=== PATIENT | male | born 1990 | race Caucasian/White ===

== ENCOUNTER 2017-03-05 07:47 | Emergency (ER) | payer OTHER ==
[2017-03-05 07:50] VITALS: BP 144/57; PULSE 132; RESP 18; O2SAT 97
--- NOTE | 2017-03-05 08:09 | ED.REPORT ---
HPI-General Illness Date of Service Mar 05, 2017 ED Provider: Brenton Taylor MD Nursing Notes Stated Complaint: KIDNEY PAIN Chief Complaint: General Complaint Allergies: Coded Allergies: ondansetron (Verified Allergy, Unknown, hives, 03/05/17) General Time Seen by MD: 08:02 Past Medical History Past Medical History None reported. Past Surgical History None reported. Smoking History Unknown if Ever Smoker Social History Patient reports drinking one beer prior to the accident Other Social History: Local resident Ambulatory Status Independent Physical Exam Vital Signs Vital Signs Date Time Temp Pulse Resp B/P Pulse Ox O2 Delivery O2 Flow Rate FiO2 03/05/17 07:50 36.8 132 18 144/57 97 Room Air Interpretation & Diagnostics Lab Results Interpretation Result Diagram: 03/05/17 0842 03/05/17 0842 Test 03/05/17 08:27 03/05/17 08:42 Urine Color Yellow (YELLOW) Urine Appearance Clear (CLEAR,HAZY) Urine pH 6.0 (5.0-8.0) Urine Specific [place] 1.012 (1.003-1.035) Urine Protein Negativemg/dL (NEG,TRACE) Urine Glucose (UA) Negativemg/dL (NEGATIVE) Urine Ketones Negativemg/dL (NEGATIVE) Urine Occult Blood Negative (NEGATIVE) Urine Nitrite Negative (NEGATIVE) Urine Bilirubin Negative (NEGATIVE) Urine Urobilinogen Normalmg/dL (NORMAL) Urine Leukocyte Esterase Trace (NEGATIVE) Urine RBC 0-2/hpf (0-2) Urine WBC 6-10/hpf (0-5) Urine Epithelial Cells Few/hpf (NONE-MOD) Urine Crystals None seen (NONE SEEN) Urine Bacteria None/hpf (NONE-FEW) Urine Hyaline Casts None/lpf (NONE) Urine Granular Casts None seen (NONE SEEN) Urine Waxy Casts None seen (NONE SEEN) Urine Red Blood Cell Casts None seen (NONE SEEN) Urine White Blood Cell Casts None seen (NONE SEEN) Urine Mucus None seen (None Seen) Urine Trichomonas None seen (NONE SEEN) Urine Yeast None (NONE SEEN) Urinalysis Comment None Urine Culture Reflexed Indicated White Blood Count 19.2th/mm3 (3.8-10.1) Red Blood Count 5.37mil/mm3 (4.40-5.80) Hemoglobin 16.7g/dL (13.8-17.2) Hematocrit 47.4% (41.0-50.0) Mean Corpuscular Volume 88.3fL (81-100) Mean Corpuscular Hemoglobin 31.1pg (27.0-35.0) Mean Corpuscular Hemoglobin Concent 35.2% (32.0-37.0) Red Cell Distribution Width 13.6% (12.3-15.4) Platelet Count 277bil/L (150-400) Neutrophils (%) (Auto) 80.9% (40-74) Lymphocytes (%) (Auto) 7.2% (14-46) Monocytes (%) (Auto) 10.4% (4-12) Eosinophils (%) (Auto) 0.6% (0-5) Basophils (%) (Auto) 0.2% (0-3) Erythrocyte Sedimentation Rate 4mm/hr (0-15) Sodium Level 136mEq/L (134-144) Potassium Level 4.2mEq/L (3.5-5.2) Chloride Level 96mEq/L (97-108) Carbon Dioxide Level 23mmol/L (18-29) Blood Urea Nitrogen 18mg/dL (6-20) Creatinine 1.44mg/dL (0.76-1.27) Estimat Glomerular Filtration Rate 62mL/min (>59) Glucose Level 117mg/dL (60-99) Calcium Level 10.0mg/dL (8.5-10.1) Total Bilirubin 0.8mg/dL (0.0-1.2) Aspartate Amino Transf (AST/SGOT) 24U/L (0-50) Alanine Aminotransferase (ALT/SGPT) 26U/L (0-44) Alkaline Phosphatase 113U/L (25-150) Total Protein 8.0g/dL (6.4-8.4) Albumin 4.3g/dL (3.4-5.0) Discharge & Departure Referrals: JOSE R MORALES MD (PCP) Brenton Taylor MD Mar 05, 2017 08:09 Brenton Taylor MD Mar 05, 2017 08:09
[2017-03-05 08:53] LABS: APPEARANCE,URINE CLEAR (CLEAR,HAZY); COLOR,URINE YELLOW (YELLOW); OCCULT BLOOD,URINE NEGATIVE (NEGATIVE); UROBILINOGEN,URINE NORMAL (NORMAL)
[2017-03-05 09:06] LABS: BASOPHILS % (AUTO) 0.2 % (0-3); EOSINOPHILS % (AUTO) 0.6 % (0-5); MONOCYTES % (AUTO) 10.4 % (4-12); Mean Corpuscular Hemoglobin 31.1 pg (27.0-35.0); Mean Corpuscular Volume 88.3 fL (81-100); NEUTROPHILS % (AUTO) 80.9 % (40-74); Platelet Count 277 bil/L (150-400)
--- NOTE | 2017-03-05 09:19 | ED.REPORT ---
HPI-General Illness Date of Service Mar 05, 2017 ED Provider: Dr. Pathak The patient is a 27 year old male with history of testicular cancer and prior renal stent placement, who presents to the emergency department complaining of left lower back pain that began 3 weeks ago. His pain radiates down his left leg just below his knee. He is unsure if it goes around the front or the back of his leg. His pain is exacerbated with movements or bending. He has also noticed chills and subjective fever. He denies problem walking, numbness, weakness, abdominal pain, penile pain, penile discharge, testicular swelling, testicular pain or rash. He denies IV drug use. Nursing Notes Stated Complaint: KIDNEY PAIN Chief Complaint: General Complaint Nursing Notes Reviewed: Yes Allergies: Coded Allergies: ondansetron (Verified Allergy, Unknown, hives, 03/05/17) General Time Seen by MD: 09:19 Chief Complaint Back pain Hx Obtained From: Patient Arrived By: Walk-in Sudden in Onset?: No Onset Occurred: More than a week ago... Symptom Duration: Since onset Location: : Back Quality: Painful Radiation: : Leg left Severity: Current: Moderate Severity: Maximum: Severe Recent Healthcare: No recent doctor visit, No recent hospitalization Similar Sx Previous: No Past Medical History Past Medical History Testicular cancer s/p removal Past Surgical History L renal stent Testicle removal Family History Noncontributory Smoking History Unknown if Ever Smoker Social History The patients camps around the area. Denies IV drug use. Alcohol Use: "Social" Drug Use: THC Other Social History: Good social support, Local resident Ambulatory Status Independent Review of Systems Full Review of Systems Constitutional: Reports: Chills, Fever (subjective) GI: Denies: Abdominal pain Male: Denies Penile discharge, Denies Scrotal swelling, Denies Testicular pain, Denies Testicular swelling Musculoskeletal: Reports: Back pain, Extremity pain Skin: Denies Rash Neurologic: Denies: Focal weakness, Numbness, Problem walking, Weakness Complete sys rev & neg: except as marked. Physical Exam Vital Signs Vital Signs Date Time Temp Pulse Resp B/P Pulse Ox O2 Delivery O2 Flow Rate FiO2 03/05/17 07:50 36.8 132 18 144/57 97 Room Air Initial VS: Reviewed Head / Eyes: Atraumatic, Normocephalic, PERRL ENT: Mucous membranes moist, Conjunctiva normal, No scleral icterus Neck: Supple, Non-tender, Full range of motion Respiratory: Breath sounds normal, Clear to auscultation, No respiratory distress Abdomen / GI: Soft, Non-tender, No guarding, No rebound, No distention Lymphatic: No lymphadenopathy Extremities: Vascular intact, Neuro intact, No swelling, No tenderness Skin: Warm, Dry, No cyanosis Psychiatric: Mood/affect normal, Behavior normal, Normal thought content General/Constitutional: Awake, Alert, No acute distress, Cooperative Cardiovascular: Regular rhythm, Heart sounds NL, No gallop, No murmurs, No rubs Heart Rate / Rhythm: Positive: Tachycardia Back: No midline vertebral tend Left lumbar paraspinal tenderness. Negative straight leg raise. Intact motor and sensory function from L1-S1. Neurologic: Oriented X3, Speech NL, No sensory deficits Mildly tremulous Interpretation & Diagnostics Lab Results Interpretation Result Diagram: 03/05/17 0842 03/05/17 0842 Test 03/05/17 08:27 03/05/17 08:42 Urine Color Yellow (YELLOW) Urine Appearance Clear (CLEAR,HAZY) Urine pH 6.0 (5.0-8.0) Urine Specific [place] 1.012 (1.003-1.035) Urine Protein Negativemg/dL (NEG,TRACE) Urine Glucose (UA) Negativemg/dL (NEGATIVE) Urine Ketones Negativemg/dL (NEGATIVE) Urine Occult Blood Negative (NEGATIVE) Urine Nitrite Negative (NEGATIVE) Urine Bilirubin Negative (NEGATIVE) Urine Urobilinogen Normalmg/dL (NORMAL) Urine Leukocyte Esterase Trace (NEGATIVE) Urine RBC 0-2/hpf (0-2) Urine WBC 6-10/hpf (0-5) Urine Epithelial Cells Few/hpf (NONE-MOD) Urine Crystals None seen (NONE SEEN) Urine Bacteria None/hpf (NONE-FEW) Urine Hyaline Casts None/lpf (NONE) Urine Granular Casts None seen (NONE SEEN) Urine Waxy Casts None seen (NONE SEEN) Urine Red Blood Cell Casts None seen (NONE SEEN) Urine White Blood Cell Casts None seen (NONE SEEN) Urine Mucus None seen (None Seen) Urine Trichomonas None seen (NONE SEEN) Urine Yeast None (NONE SEEN) Urinalysis Comment None Urine Culture Reflexed Indicated White Blood Count 19.2th/mm3 (3.8-10.1) Red Blood Count 5.37mil/mm3 (4.40-5.80) Hemoglobin 16.7g/dL (13.8-17.2) Hematocrit 47.4% (41.0-50.0) Mean Corpuscular Volume 88.3fL (81-100) Mean Corpuscular Hemoglobin 31.1pg (27.0-35.0) Mean Corpuscular Hemoglobin Concent 35.2% (32.0-37.0) Red Cell Distribution Width 13.6% (12.3-15.4) Platelet Count 277bil/L (150-400) Neutrophils (%) (Auto) 80.9% (40-74) Lymphocytes (%) (Auto) 7.2% (14-46) Monocytes (%) (Auto) 10.4% (4-12) Eosinophils (%) (Auto) 0.6% (0-5) Basophils (%) (Auto) 0.2% (0-3) Erythrocyte Sedimentation Rate 4mm/hr (0-15) Sodium Level 136mEq/L (134-144) Potassium Level 4.2mEq/L (3.5-5.2) Chloride Level 96mEq/L (97-108) Carbon Dioxide Level 23mmol/L (18-29) Blood Urea Nitrogen 18mg/dL (6-20) Creatinine 1.44mg/dL (0.76-1.27) Estimat Glomerular Filtration Rate 62mL/min (>59) Glucose Level 117mg/dL (60-99) Calcium Level 10.0mg/dL (8.5-10.1) Total Bilirubin 0.8mg/dL (0.0-1.2) Aspartate Amino Transf (AST/SGOT) 24U/L (0-50) Alanine Aminotransferase (ALT/SGPT) 26U/L (0-44) Alkaline Phosphatase 113U/L (25-150) Total Protein 8.0g/dL (6.4-8.4) Albumin 4.3g/dL (3.4-5.0) Re-Eval/Medical Decision Med Decision/Clinical Course Notified by staff that patient had eloped. Patient had leukocytosis and tachycardia with a reassuring exam and in the setting of methamphetamine being present on his urine drug screen. Patient left prior to being able to fully evaluate for other pathology. Source of Hx: Old records Time of Eval: 09:27 Re-Evaluation/Progress Note: Discussed plan for workup. Time of Eval: 10:00 Re-Evaluation/Progress Note: It appears that the patient has left the department. Time of Eval: 10:09 Re-Evaluation/Progress Note: The patient is still not in the department. He has eloped. Discharge & Departure Departure Notes ELOPED Primary Impression: Lumbar pain Chronicity: acute Back pain laterality: left Disposition: AGAINST MEDICAL ADVICE (Left before workup was completed) Discharge Condition All VS Reviewed: Yes Condition: Stable Referrals: JOSE R MORALES MD (PCP) Scribe Attestation Portions of this note were transcribed by Sobeida Bonilla. I, Dr. Pathak personally performed the history, physical exam and medical decision-making; I reviewed and confirmed the accuracy of the information in the transcribed note. Signed by: Blanka Mock, 03/05/2017 at 1030. copies to: JOSE R MORALES MD, Timothy S DO Mar 05, 2017 09:19 Sobeida Bonilla Mar 05, 2017 09:27
[2017-03-05] MEDS ORDERED: 0.9% Sodium Chloride 1,000 ML IV SCH (09:30)
[2017-03-05] MEDS ORDERED: Iohexol 300 mg/mL 30 mL Inj PO ONE (09:30)
== END 2017-03-05 10:07 | disposition left against medical advice (07) ==
LOC: SED 07:47
DX: M54.5 Low back pain (principal); Z88.8 Allergy status to other drugs, medicaments and biological substances; Z53.29 Procedure and treatment not carried out because of patient's decision for other reasons